=== PATIENT | male | born 1985 | race Caucasian/White ===

== ENCOUNTER 2024-07-14 08:58 | Day surgery (SDC) | payer BC ==
[~2024-07-14 08:58] MED LIST: Acetaminophen 1,000 MG in Premix Bag 1 BAG IV SCH; Albuterol 0.083% 2.5 MG/3 ML Neb Soln NEB PRN; Metoclopramide 10 MG/2 ML SDV IVPUSH PRN; Morphine 2 MG/ML SYRINGE IVPUSH PRN; Naloxone 0.4 MG/ML SDV IVPUSH PRN; Ondansetron 4 MG/2 ML SDV IVPUSH PRN; Phenylephrine HCl In 0.9% NaCl 1 MG/10 ML Syringe IVPUSH PRN; Pregabalin 75 MG Cap PO SCH; ceFAZolin 2 GM in Sodium Chloride 0.9% 50 ML IV ONE; fentaNYL 50 MCG/ML SDV IVPUSH PRN
[2024-07-14] MEDS: Lactated Ringers 1,000 ML IV SCH (09:43)
[2024-07-14] MEDS ORDERED: Propofol 200 MG/20 ML SDV ONE (09:46)
[2024-07-14] MEDS ORDERED: Midazolam 1 MG/ML 2 ML SDV ONE (09:47)
[2024-07-14] MEDS ORDERED: Lidocaine 2% 5 ML SDV ONE (09:47)
[2024-07-14] MEDS ORDERED: fentaNYL 100 MCG/2 ML SDV ONE ×2 (09:47→10:59)
[2024-07-14] MEDS ORDERED: Lidocaine 1% with EPINEPHrine 1:100,000 10 ML MDV ONE (10:10)
[2024-07-14] MEDS ORDERED: Bupivacaine 0.25% 10 ML SDV ONE (10:11)
[2024-07-14] MEDS ORDERED: Dexamethasone 4 MG/ML 5 ML MDV ONE (10:57)
[2024-07-14] MEDS ORDERED: Sugammadex Sodium 200 MG/2 ML VIAL IV ONE (10:57)
[2024-07-14] MEDS ORDERED: Ondansetron 4 MG/2 ML SDV ONE (10:57)
[2024-07-14] MEDS ORDERED: ceFAZolin 1 GM Vial ONE (10:57)
[2024-07-14] MEDS ORDERED: Ketorolac 30 MG/ML SDV ONE (10:59)
[2024-07-14] MEDS ORDERED: Rocuronium Bromide 50 MG/5 ML Syringe ONE (11:01)
[2024-07-14] MEDS ORDERED: Succinylcholine/Sod PF 100 MG/5 ML SYRINGE IV ONE (11:01)
[2024-07-14] MEDS: HYDROmorphone 1 MG/ML Syringe IVPUSH PRN (12:54)
== END 2024-07-14 13:30 | disposition home or self-care (01) ==
LOC: MW.SDS 08:58
PROVIDERS: ATTEND Surgery
DX: L05.91 Pilonidal cyst without abscess (principal); F17.210 Nicotine dependence, cigarettes, uncomplicated
CPT/HCPCS: 11772; J0131; J0330; J0690; J1100; J1171; J1885; J2250; J2405; J2704; J3010; J3490; J7120; 00300